=== PATIENT | male | born 1985 ===

== ENCOUNTER 2019-04-03 23:19 | Emergency (ER) | payer SELFPAY ==
[2019-04-03] MEDS ORDERED: Silver Sulfadiazine 1%* 20 GM TOPICAL ONE (23:42)
[2019-04-03] MEDS ORDERED: oxyCODONE/Acetamin 5/325 MG* TAB PO ONE (23:42)
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
[2019-04-04] MEDS ORDERED: Tetan/Diph/Pertus SYR(Tdap)* 0.5 ML SYR(BOOSTRIX) use SYR IM ONE (00:15)
[2019-04-04] MEDS ORDERED: Silver Sulfadiazine 1% 400gm* 1 APPLIC JAR TOPICAL ONE (00:30)
[2019-04-04 00:45] VITALS: BP 129/79
== END 2019-04-04 00:42 | disposition home or self-care (01) ==
LOC: ED 23:19
DX: T23.202A Burn of second degree of left hand, unspecified site, initial encounter (principal); X10.2XXA Contact with fats and cooking oils, initial encounter; Y92.9 Unspecified place or not applicable; Z23 Encounter for immunization
CPT/HCPCS: 16020; 90471; 90715; 99283; A9270-GY